=== PATIENT | male | born 1950 | race Caucasian/White ===

== ENCOUNTER 2017-01-13 14:41 | Observation (INO) | payer BC ==
[~2017-01-13] VITALS: Ht 170.2 cm; Wt 66.8 kg
--- NOTE | ~2017-01-13 | ER ---
PATIENT'S NAME: TREY SANTOS [facility] AGE: 66 Y [address] ROOM: [id number] [place], [place] [address] LOCATION: [facility] ADMIT DATE: 01/13/2017 ER/Outpatient Report DISCHARGE DATE: FAMILY PHYSICIAN: SIMBA YEE ATTENDING PHYSICIAN: Maira San CHIEF COMPLAINT: Intracranial hemorrhage. HISTORY OF PRESENT ILLNESS: The patient arrives by ambulance from [place]. By report, he has a history of metastatic prostate cancer, currently receiving chemo radiation. He has had multiple falls over the last several days. He was found to have low platelets of 64. Transfusion of platelets was initiated. Head CT revealed report of parafalcine subdural hematoma, likely subarachnoid hemorrhage at the ACom and intraventricular hemorrhage as well. The patient really has remained hemodynamically stable and is at his normal baseline neurologic status according to friends, family, and transport providers. He has had minimal headache associated with this. He has chronic neck and back pain secondary to his metastasis and nothing is new today. The patient does note that he feels like he begins to shake and will often times be uncontrollably shaking before he blacks out and falls to the ground. Today was his worst one and that prompted him to come in. PAST MEDICAL HISTORY, SOCIAL HISTORY, MEDICATIONS, AND ALLERGIES: Have been documented on the record and reviewed by me. REVIEW OF SYSTEMS: All systems were reviewed and negative except as noted in the HPI. PHYSICAL EXAMINATION: VITAL SIGNS: Blood pressure 113/69, pulse of 95, respiratory rate of 16, temperature 98.1, and SpO2 is 99% on room air. Pain is 5/10. GENERAL: Frail male appearing older than his stated age, resting comfortably on the exam table, in no acute pain or distress. NEURO: The patient is awake. He is alert. He follows commands in all extremities. No gross motor deficits. No obvious cranial nerve deficits. HEENT: Normocephalic, atraumatic. Eyes are PERRL. Extraocular movements are intact. Oropharynx is clear and moist. NECK: Supple with no adenopathy. Trachea is midline. CHEST: Heart has regular rate and rhythm with no murmurs obviously. Lungs are grossly clear to auscultation bilateral. BACK: Notable for diffuse tenderness at the cervical spine, which he states is his baseline and there is nothing new. No point tenderness or step-offs on PATIENT'S NAME: TREY SANTOS [facility] AGE: 66 Y [address] ROOM: [id number] [place], [place] [address] LOCATION: [facility] ADMIT DATE: 01/13/2017 ER/Outpatient Report DISCHARGE DATE: FAMILY PHYSICIAN: SIMBA YEE ATTENDING PHYSICIAN: Maria San exam. EXTREMITIES: Warm and well perfused. There is no pain with palpation of any of the extremities and no pain with passive range of motion of the major joints. SKIN: Warm, dry, and intact otherwise. LABORATORY DATA AND X-RAYS: CBC was obtained. He is not anemic. His platelets have improved to greater than 100. IMPRESSION: 1. Left parafalcine anterior subdural hematoma. 2. A small blush at the anterior communicating artery, which may indicate subarachnoid hemorrhage, unclear if aneurysmal. I do not detect any blood in the right ventricle as previously reported. 3. Multiple falls. 4. Metastatic prostate cancer, on chemo. 5. Status post platelet transfusion. EMERGENCY DEPARTMENT COURSE: The patient was seen and evaluated as above. He appeared hemodynamically stable with no obvious significant abnormalities. He was evaluated both by myself and by Dr. San, neurosurgeon. The patient will be admitted to Dr. San's service in the ICU for close monitoring in the setting of possible subarachnoid hemorrhage. No further interventions are warranted at this time. We will hold his Plavix. Per Dr. San's orders, the patient was given some [place]. MD SUZAN HU/betty /[id number] d: 01/14/17 0954 t: 01/25/17 1732, OUTPATIENT REPORT
--- NOTE | ~2017-01-13 | DS ---
PATIENT'S NAME: TREY SANTOS [facility] AGE: 66 Y [address] ROOM: [address] [address] LOCATION: [facility] ADMIT DATE: 01/13/2017 Discharge Summary DISCHARGE DATE: 01/15/2017 FAMILY PHYSICIAN: SIMBA YEE ATTENDING PHYSICIAN: Maria San REASON FOR ADMISSION: The patient was admitted following a fall. It is not clear what made him fall, but it appears he may have struck his head and may also have hurt his neck. On examination, the patient was alert and lucid. The main finding was a CT head done in [place]. The CT head showed a small acute subdural hematoma along the anterior part of the falx cerebri, measuring 5.5 mm in thickness. TREATMENT RENDERED: The patient was admitted to hospital for observation. He had a CT angiogram to make sure the hemorrhage was not from an aneurysm and it was not. The patient remained stable and by the 15 of January had met all criteria for dismissal. The patient was released home on that day. No arrangements were made for followup. However, the patient was instructed to contact us if there was any concern. FINAL DIAGNOSIS: Intracranial hemorrhage, probably from a fall. MD ROBERT HAYNESO/babatundel /[id number] d: 01/31/171850 t: 01/31/171912, DISCHARGE SUMMARY
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
[2017-01-13 15:30] LABS: HEMATOCRIT 25.3 % (37.0-53.0); HEMOGLOBIN 8.3 g/dL (11.0-16.0); MCHC 32.8 gm/dL (32.0-36.5); MCV 88.5 fl (83.0-98.0); MPV 9.5 fl (9.4-12.4); PLATELET COUNT 116 K/uL (150-450); RBC 2.86 M/uL (3.50-5.50); RDW-CV 18.3 % (11.9-14.6); WBC 3.3 K/uL (4.0-11.0)
[2017-01-13 15:42] LABS: INR - (THERAPEUTIC) 0.96 (0.92-1.07); PROTIME 10.1 SECONDS (9.8-11.4); PTT 25 SECONDS (25-32)
[2017-01-13 15:46] LABS: ALBUMIN 2.5 gm/dL (3.5-5.0); ALT 45 IU/L (12-78); ANION GAP 11.7 (10.0-19.0); AST 54 IU/L (10-40); BLOOD UREA NITROGEN 13 mg/dL (6-24); CALCIUM 8.4 mg/dL (8.5-10.5); CHLORIDE 101 mMol/L (96-110); CO2 27 mMol/L (22-32); CREATININE 0.7 mg/dL (0.6-1.3); ESTIMATED GFR (MDRD EQUATION) > 60; POTASSIUM 3.7 mMol/L (3.7-5.1); SODIUM 136 mMol/L (135-145); TOTAL BILIRUBIN 0.5 mg/dL (0.0-1.5); TOTAL PROTEIN 6.3 g/dL (6.0-8.4)
[2017-01-13 15:47] LABS: ALK PHOS 553 IU/L (33-138)
[2017-01-13 16:04] LABS: ABSOLUTE NEUTROPHIL CT (ANC) 2.6 K/uL (1.4-9.0); BANDED NEUTROPHIL # 0.3 K/uL (0.0-0.1); BANDED NEUTROPHILS % 8 %; LYMPHOCYTE # 0.3 K/uL (0.8-4.0); LYMPHOCYTE % 10 %; MONOCYTE # 0.4 K/uL (0.0-1.0); SEGMENTED NEUTROPHIL # 2.3 K/uL (1.4-9.0); SEGMENTED NEUTROPHIL % 70 %
[2017-01-13] MEDS ORDERED: MIDODRINE HCL10 MG PO (18:42)
[2017-01-13] MEDS ORDERED: EFFEXOR XR150 MG PO (18:42)
[2017-01-13] MEDS ORDERED: MOVANTIK25 MG PO (18:43)
[2017-01-13] MEDS ORDERED: NORCO 5-325 TA1 EACH PO (18:44)
[2017-01-13] MEDS ORDERED: ZOFRAN ODT8 MG PO (18:44)
[2017-01-13] MEDS ORDERED: DELTASONE10 MG PO (18:45)
[2017-01-13] MEDS ORDERED: TOVIAZ4 MG PO (18:46)
[2017-01-13] MEDS ORDERED: PRILOSEC20 MG PO (18:49)
[2017-01-13] MEDS ORDERED: LANOXIN (DIGI125 MCG PO (18:49)
[2017-01-13] MEDS ORDERED: CRESTOR40 MG PO (18:50)
[2017-01-13] MEDS ORDERED: FLOMAX0.4 MG PO (18:50)
[2017-01-13] MEDS ORDERED: PLAVIX75 MG PO (18:50)
[2017-01-13] MEDS ORDERED: COMPAZINE10 MG PO (18:51)
[2017-01-13] MEDS ORDERED: NITROSTAT0.4 MG SL (18:52)
[2017-01-13] MEDS ORDERED: XGEVA120 MG/1.7 SUB-Q (18:54)
[2017-01-13] MEDS ORDERED: LUPRON DEPOT11.25 M2 SUB-Q (19:02)
[2017-01-13] MEDS ORDERED: EQL FISH OIL 11 EAC1 PO (19:06)
[2017-01-13] MEDS ORDERED: THERAGRAN-M1 TAB PO (19:07)
[2017-01-13] MEDS ORDERED: VITAMIN B-122500 MCG SL (19:07)
[2017-01-13] MEDS ORDERED: POTASSIUM99 M1 PO (19:08)
[2017-01-13] MEDS ORDERED: ESTER-C 1,0001 EACH PO (19:08)
[2017-01-13] MEDS ORDERED: LYSINE1000 MG PO (19:09)
[2017-01-13] MEDS ORDERED: CALCIUM600 MG PO (19:09)
[2017-01-13] MEDS ORDERED: THERMOTABS TAB1 EACH PO (19:10)
[2017-01-13] MEDS ORDERED: ASPIRIN LO-DOSE81 MG PO (19:10)
[2017-01-13] MEDS ORDERED: DURAGESIC 25MC25 MCG TRANS (19:22)
[2017-01-14] MEDS ORDERED: DURAGESIC 25MC25 MCG TRANS (10:36)
[2017-01-14] MEDS ORDERED: DURAGESIC1 EAC1 TRANS (10:37)
[2017-01-14] MEDS ORDERED: MORPHINE 15MG I15 MG PO (10:37)
[2017-01-14] MEDS ORDERED: MORPHINE SULFAT15 M1 PO (10:38)
[2017-01-15] MEDS ORDERED: MS CONTIN15 MG PO (16:23)
== END 2017-01-15 16:52 | disposition disaster alternative care site (69) ==
LOC: GMED 14:41 → GNTU 15:33 → GICU 15:33 → GNTU 22:20
PROVIDERS: Emergency Medicine; ADMIT Neurological Surgery
DX: S06.5X0A Traumatic subdural hemorrhage without loss of consciousness, initial encounter (principal); I10 Essential (primary) hypertension; C61 Malignant neoplasm of prostate; C79.51 Secondary malignant neoplasm of bone; F32.9 Major depressive disorder, single episode, unspecified; M54.5 Low back pain; G89.29 Other chronic pain; M48.02 Spinal stenosis, cervical region; Z98.890 Other specified postprocedural states; W19.XXXA Unspecified fall, initial encounter
CPT/HCPCS: G0378; J1642; J2270; J7512; Q0164; Q9967